=== PATIENT | female | born 1985 | race Caucasian/White ===

== ENCOUNTER 2020-09-14 17:45 | Emergency (ER) | payer MEDICAID ==
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
== END 2020-09-14 18:57 | disposition home or self-care (01) ==
LOC: JD.ED 17:45
DX: S20.229A Contusion of unspecified back wall of thorax, initial encounter (principal); S60.512A Abrasion of left hand, initial encounter; S60.511A Abrasion of right hand, initial encounter; F17.210 Nicotine dependence, cigarettes, uncomplicated; Y04.0XXA Assault by unarmed brawl or fight, initial encounter
CPT/HCPCS: 99282; 99283